=== PATIENT | female | born 1965 | race Caucasian/White ===

== ENCOUNTER 2016-08-25 08:45 | Outpatient (CLI) | payer OTHER | END 2016-08-25 08:46 | disposition home or self-care (01) | DX: R91.1 Solitary pulmonary nodule (principal) ==

== ENCOUNTER 2016-08-30 11:06 | Outpatient (CLI) | payer OTHER | END 2016-08-30 11:07 | disposition home or self-care (01) | DX: Z12.31 Encounter for screening mammogram for malignant neoplasm of breast (principal) ==

== ENCOUNTER 2020-12-21 08:00 | Outpatient (CLI) | payer MEDICAID, OTHER ==
[2020-12-21 12:16] LABS: BASOPHILS % (AUTO) 0.6 %; EOSINOPHILS # (AUTO) 0.1 10^3/uL (0.0-0.7); EOSINOPHILS % (AUTO) 1.7 %; HCT - HEMATOCRIT 38.9 % (37.0-47.0); HGB - HEMOGLOBIN 12.9 g/dL (12.0-16.0); LYMPHOCYTES # (AUTO) 2.4 10^3/uL (1.5-3.5); LYMPHOCYTES % (AUTO) 36.7 %; MEAN CORPUSCULAR HEMOGLOBIN 32.7 pg (27.0-31.0); MEAN CORPUSCULAR HGB CONC 33.2 g/dL (32.0-36.0); MEAN CORPUSCULAR VOLUME 98.5 fL (81.0-99.0); MEAN PLATELET VOLUME 10.5 fL (7.9-10.8); MONOCYTES # (AUTO) 0.4 10^3/uL (0.0-1.0); MONOCYTES % (AUTO) 6.8 %; NEUTROPHILS # (AUTO) 3.5 10^3/uL (1.5-6.6); PLT - PLATELET COUNT 217 10^3/uL (130-450); RED BLOOD COUNT 3.95 10^6/uL (4.20-5.40); RED CELL DISTRIBUTION WIDTH 12.2 % (12.0-15.0); WHITE BLOOD COUNT 6.5 x10^3/uL (4.8-10.8)
[2020-12-21 12:39] LABS: ALBUMIN 4.4 g/dL (3.2-5.5); ALBUMIN/GLOBULIN RATIO 1.6 (1.0-2.2); ALKALINE PHOSPHATASE 64 IU/L (42-121); ALT ALANINE AMINOTRANSFERASE 16 IU/L (10-60); AST ASPARTATE AMINOTRANSFERASE 17 IU/L (10-42); BILIRUBIN,TOTAL 0.7 mg/dL (0.2-1.0); BUN - BLOOD UREA NITROGEN 12 mg/dL (6-20); CALCIUM 9.3 mg/dL (8.5-10.3); CARBON DIOXIDE - CO2 25 mmol/L (21-32); CHLORIDE 103 mmol/L (101-111); CHOL/HDL RATIO 3.6 (<4.4); CHOLESTEROL 186 mg/dL; CREATININE 0.6 mg/dL (0.4-1.0); GFR - MDRD 104 (>89); GLUCOSE 98 mg/dL (70-100); HDL CHOLESTEROL 52 mg/dL; LDL CHOLESTEROL,CALCULATED 120 mg/dL; LDL/HDL RATIO 2.3 (<4.4); POTASSIUM 4.2 mmol/L (3.5-5.0); SODIUM 139 mmol/L (135-145); TOTAL PROTEIN 7.2 g/dL (6.7-8.2); TRIGLYCERIDES 70 mg/dL; VLDL CHOLESTEROL 14 mg/dL
[2020-12-21 12:40] LABS: THYROID STIMULATING HORMONE 2.22 uIU/mL (0.34-5.60)
== END 2020-12-21 23:59 | disposition home or self-care (01) ==
LOC: LAB.WCP 08:00
PROVIDERS: ATTEND Family Medicine
DX: Z00.00 Encounter for general adult medical examination without abnormal findings (principal)
CPT/HCPCS: 36415; 80053; 80061; 83721; 84443; 85025

== ENCOUNTER 2020-12-30 09:25 | Outpatient (CLI) | payer MEDICAID ==
--- NOTE | 2020-12-30 18:55 | CT Report ---
PROCEDURE: CHEST WO INDICATIONS: PULMONARY NODULE TECHNIQUE: Noncontrast 5 mm thick sections acquired from the pulmonary apices to the posterior costophrenic angl es. 7 mm thick coronal and sagittal MIP reformats were then acquired. For radiation dose reduction, the following was used: automated exposure control, adjustment of mA and/or kV according to patient size. COMPARISON: Similar CT 08/25/2016. FINDINGS: Image quality: Excellent. Lungs and pleura: No acute air space opacities. A small angular radiodensity at the medial right up per lobe near the spinal pleural surface is unchanged in size and morphology given differences in na hnique. This is best seen currently on CT series 4 image [address] series 4 image 40. N o new nodule has developed. No pleural effusions or pneumothorax. Central and peripheral airways are patent and normal in caliber. Mediastinum: Heart size is normal. No pericardial effusion. No mediastinal adenopathy by size crit eria. Thoracic aorta and central pulmonary arteries are normal in size. Esophagus is normal in elijah michelle. No hiatal hernia. Bones and chest wall: No suspicious bony lesions. No vertebral body compression fractures. No axil gayle or supraclavicular adenopathy by size criteria. The thyroid is normal in size and there are no incidental findings. Abdomen: Visualized upper abdominal solid organs and bowel loops appear normal in the absence of con trast. IMPRESSION: Stable appearing benign nodule within the medial right upper lobe near the spinal pleural surface, wi th reference to the prior CT 08/25/2016. No follow-up recommended. CLINICAL RECOMMENDATION STATEMENTS: In patients <35 years with an ITN detected on CT, MRI, or extrathyroidal ultrasound, the Committee re commends further evaluation with dedicated thyroid ultrasound if the nodule is ?1 cm and has no suspi cious imaging features, and if the patient has normal life expectancy. In patients ?35 years with an ITN detected on CT, MRI, or extrathyroidal ultrasound, the Committee re commends further evaluation with dedicated thyroid ultrasound if the nodule is ?1.5 cm and has no jeb picious imaging features, and if the patient has normal life expectancy. (ACR, 2014) Reviewed by: Joe Meehan MD on 12/30/2020 5:53 PM [facility] Approved by: Joe Meehan MD on 12/30/2020 5:53 PM [facility] Station ID: [id number]
== END 2020-12-30 09:26 | disposition home or self-care (01) ==
LOC: DI 09:25
PROVIDERS: ATTEND Family Medicine
DX: R91.1 Solitary pulmonary nodule (principal)

== ENCOUNTER 2021-04-05 09:26 | Day surgery (SDC) | payer MEDICAID ==
[2021-04-05] MEDS ORDERED: LACTATED RINGERS 1,000 ML IV ONE (09:30)
[2021-04-05] MEDS ORDERED: MIDAZOLAM 2 MG/2 ML VIAL ONE ×2 (10:42)
[2021-04-05] MEDS ORDERED: fentaNYL 250 MCG/5 ML VIAL ONE (10:42)
[2021-04-05] MEDS ORDERED: LACTATED RINGERS 300 ML IV ONE (11:22)
[2021-04-05 11:57] VITALS: BP 97/70
== END 2021-04-05 09:27 | disposition home or self-care (01) ==
LOC: SDS 09:26
PROVIDERS: ATTEND Surgery
PROC: 0DBN8ZZ Excision of Sigmoid Colon, Via Natural or Artificial Opening Endoscopic (ICD-10-PCS; 2021-04-05)
PROC: 0DBP8ZZ Excision of Rectum, Via Natural or Artificial Opening Endoscopic (ICD-10-PCS; principal; 2021-04-05 10:45)
DX: Z12.11 Encounter for screening for malignant neoplasm of colon (principal); D12.5 Benign neoplasm of sigmoid colon; D12.8 Benign neoplasm of rectum; Z80.0 Family history of malignant neoplasm of digestive organs; F41.9 Anxiety disorder, unspecified
CPT/HCPCS: 45385; J3010; J7120

== ENCOUNTER 2022-08-08 16:39 | Emergency (ER) | payer MEDICAID ==
--- NOTE | 2022-08-08 17:45 | XRAY Report ---
PROCEDURE: Ankle 3 View RT INDICATIONS: Trauma TECHNIQUE: 3 views of the ankle were acquired. COMPARISON: Same day right foot radiographs. FINDINGS: Bones: Distal fifth metatarsal fracture. No ankle fracture. No dislocation. Ankle mortise is normall y aligned. No suspicious bony lesions. Small plantar calcaneal spur. Soft tissues: No tibiotalar joint effusion. Achilles tendon appears normal. IMPRESSION: Distal fifth metatarsal fracture. No ankle fracture. Reviewed by: Tha Schuler MD on 08/08/2022 5:43 PM [facility] Approved by: Tha Schuler MD on 08/08/2022 5:43 PM [facility] Station ID: [id number]
--- NOTE | 2022-08-08 17:45 | XRAY Report ---
PROCEDURE: Foot 3 View RT INDICATIONS: Trauma TECHNIQUE: 3 views of the foot were acquired. COMPARISON: Same day right ankle radiographs. FINDINGS: Bones: Distal fifth metatarsal shaft fracture. No intra-articular extension. Minimal displacement. No dislocation. No suspicious bony lesions. Small plantar calcaneal spur. Soft tissues: No tibiotalar joint effusion. Achilles tendon appears normal. IMPRESSION: Distal 5th metatarsal shaft fracture. Reviewed by: Tha Schuler MD on 08/08/2022 5:44 PM [facility] Approved by: Tha Schuler MD on 08/08/2022 5:44 PM [facility] Station ID: [id number]
--- NOTE | 2022-08-08 20:28 | ED Physician Documentation ---
History of Present Illness - Stated complaint Stated Complaint: RT FT BRUISED/PX - Chief complaint Chief Complaint: Trauma Ext - History obtained from History obtained from: Patient - Additonal information Additional information: 56-year-old female presents to the emergency department for evaluation of acute right foot pain sustained when she stepped awkwardly off her front stair this afternoon. Did not strike her head. She has had some swelling and ecchymosis to the distal foot. No history of previous injury. Reliable historian Review of Systems Musculoskeletal: reports: Extremity pain PD PAST MEDICAL HISTORY - Past Medical History Cardiovascular: None Respiratory: Asthma Endocrine/Autoimmune: None GI: GI bleed, Ulcers : None HEENT: None Psych: None Musculoskeletal: None Derm: None - Past Surgical History General: Colonoscopy - Present Medications Home Medications: Ambulatory Orders Medication Instructions Recorded Confirmed oxyCODONE [Roxicodone] 5 mg PO BID PRN #10 tablet 08/08/22 - Allergies Allergies/Adverse Reactions: Allergies Allergy/AdvReac Type Severity Reaction Status Date / Time No Known Drug Allergies Allergy Verified 08/08/22 16:47 PD ED PE EXPANDED - Extremities Extremities: Right foot (Swelling and ecchymosis of the distal right foot with tenderness over the distal fifth metacarpal. Full range of motion of the ankle and foot in all planes otherwise. 2+ DP pulse. Neurovascular intact) Results - Vitals Vitals: Vital Signs - 24 hr 08/08/22 16:48 Temperature 36.7 C Heart Rate 83 Respiratory 16 Rate Blood Pressure 113/59 L O2 Saturation 98 Oxygen O2 Source Room air - Rads (name of study) Right foot Radiology: Final report received (Mildly displaced right fifth distal metatarsal fracture) PD Medical Decision Making - ED course Complexity details: reviewed results, considered differential, d/w patient ED course: 56-year-old female presents emergency department for evaluation of acute right foot pain and ecchymosis and swelling after stepping awkwardly off her porch. X-ray confirms a distal fifth meta tarsal fracture. She was placed in a posterior splint given crutches. Neurovascularly intact post splinting. Advised ice Motrin and Tylenol for analgesia limited prescription for oxycodone also sent to the pharmacy. Advised need to follow-up with orthopedics. Routine splint care and emergent return precautions otherwise discussed. Departure - Departure Disposition: Home, Self Care Clinical Impression: Metatarsal stress fracture of right foot Qualifiers: Encounter type: initial encounter Qualified Code(s): M84.374A - Stress fracture, right foot, initial encounter for fracture Condition: Stable Record reviewed to determine appropriate education?: Yes Instructions: ED Fx Foot Follow-Up: Torres Walls MD [Provider Admit Priv/Credential] - Prescriptions: oxyCODONE [Roxicodone] 5 mg PO BID PRN #10 tablet PRN Reason: Pain Comments: Navya you have fractured the distal portion of your fifth metatarsal bone. We have placed you in a temporary fiberglass splint. In the long-term you will need to follow-up with orthopedics. I have given you the name of a local orthopedic surgeon. Your primary care doctor may need to make the referral. You should be nonweightbearing on this foot until you are seen and cleared by orthopedics. If you find the splint is too tight or gets wet you should return to the ER to have it replaced. You can take Tylenol and ibuprofen deqt-vih-jxfzdmv for discomfort. For more severe pain I prescribed oxycodone. I am prescribing a short course of narcotic pain medication for you. These are potentially dangerous and addictive medications that should be used carefully. These medications may constipate you. Take an zlwz-akq-azhpggt stool softener (docusate) twice daily with plenty of water while taking these medications. If you go 24 hours without a bowel movement, take jkye-cxn-lmiuykb miralax, per package instructions. Do not drink or drive while taking these medications. If you received narcotic or sedating medications while in the emergency department, do not drive for 24 hours. Store this medication in a safe, secure place and out of reach of children. It is a violation of federal law to give or sell this medication to another person or to use in a manner other than prescribed. The ED will not refill narcotic prescriptions, including prescriptions lost or stolen. To dispose of unwanted medications: 1. [facility] [address] [facility] [place] has a medication drop box. They accept prescription medications (in pill form) Sunday through Sunday 9:00 a.m. to 5:00 p.m. 2. The [facility] [employer] accepts prescription medications (in pill form only) for disposal year round. Call for more information. 3. Contact the [facility] for the next [facility] sponsored prescription drug collection event. , [phone], or [phone]; Note that many narcotic pain relievers also contain Tylenol/acetaminophen. Please ensure that your total dose of acetaminophen from all sources does not exceed 3 g (3000 mg) per day.
[2022-08-08 21:03] VITALS: BP 116/60
== END 2022-08-08 21:02 | disposition home or self-care (01) ==
LOC: ED 16:39
DX: M84.374A Stress fracture, right foot, initial encounter for fracture (principal)
CPT/HCPCS: 99283

== ENCOUNTER 2022-08-15 14:04 | Outpatient (CLI) | payer MEDICAID ==
--- NOTE | 2022-08-15 17:42 | XRAY Report ---
PROCEDURE: Foot 3 View RT INDICATIONS: RIGHT FOOT FRACTURE TECHNIQUE: 3 views of the foot were acquired. COMPARISON: Right foot radiographs 08/08/2022. FINDINGS: Bones: Fracture at the distal fifth metatarsal is unchanged. No dislocations. No suspicious bony le sions. Small plantar calcaneal spur. Soft tissues: No tibiotalar joint effusion. Achilles tendon appears normal. IMPRESSION: Stable distal fifth metatarsal fracture. Reviewed by: Tha Schuler MD on 08/15/2022 5:41 PM PST Approved by: Tha Schuler MD on 08/15/2022 5:41 PM PST Station ID: [id number]
== END 2022-08-15 14:05 | disposition home or self-care (01) ==
LOC: DI.WOS 14:04
PROVIDERS: ATTEND Orthopaedic Surgery
DX: S92.351D Displaced fracture of fifth metatarsal bone, right foot, subsequent encounter for fracture with routine healing (principal)

== ENCOUNTER 2022-09-07 14:22 | Outpatient (CLI) | payer MEDICAID ==
[2022-09-07 14:31] LABS: BASOPHILS % (AUTO) 0.6 %; EOSINOPHILS # (AUTO) 0.2 10^3/uL (0.0-0.7); EOSINOPHILS % (AUTO) 3.3 %; HCT - HEMATOCRIT 37.9 % (37.0-47.0); HGB - HEMOGLOBIN 12.7 g/dL (12.0-16.0); LYMPHOCYTES # (AUTO) 2.8 10^3/uL (1.5-3.5); LYMPHOCYTES % (AUTO) 43.6 %; MEAN CORPUSCULAR HEMOGLOBIN 32.5 pg (27.0-31.0); MEAN CORPUSCULAR HGB CONC 33.5 g/dL (32.0-36.0); MEAN CORPUSCULAR VOLUME 96.9 fL (81.0-99.0); MEAN PLATELET VOLUME 9.5 fL (7.9-10.8); MONOCYTES # (AUTO) 0.4 10^3/uL (0.0-1.0); MONOCYTES % (AUTO) 6.8 %; NEUTROPHILS # (AUTO) 2.9 10^3/uL (1.5-6.6); NEUTROPHILS % (AUTO) 45.5 %; PLT - PLATELET COUNT 184 10^3/uL (130-450); RED BLOOD COUNT 3.91 10^6/uL (4.20-5.40); RED CELL DISTRIBUTION WIDTH 12.1 % (12.0-15.0); WHITE BLOOD COUNT 6.3 x10^3/uL (4.8-10.8)
[2022-09-07 15:10] LABS: ALBUMIN 4.2 g/dL (3.2-5.5); ALBUMIN/GLOBULIN RATIO 1.5 (1.0-2.2); ALKALINE PHOSPHATASE 74 IU/L (42-121); ALT ALANINE AMINOTRANSFERASE 18 IU/L (10-60); AST ASPARTATE AMINOTRANSFERASE 20 IU/L (10-42); BILIRUBIN,TOTAL 0.9 mg/dL (0.2-1.0); BUN - BLOOD UREA NITROGEN 7 mg/dL (6-20); CALCIUM 9.5 mg/dL (8.5-10.3); CARBON DIOXIDE - CO2 23 mmol/L (21-32); CHLORIDE 101 mmol/L (101-111); CHOL/HDL RATIO 3.6 (<4.4); CHOLESTEROL 207 mg/dL; CREATININE 0.6 mg/dL (0.4-1.0); GFR - MDRD 103 (>89); GLUCOSE 105 mg/dL (70-100); HDL CHOLESTEROL 58 mg/dL; LDL CHOLESTEROL,CALCULATED 137 mg/dL; LDL/HDL RATIO 2.4 (<4.4); POTASSIUM 3.6 mmol/L (3.5-5.0); SODIUM 137 mmol/L (135-145); TRIGLYCERIDES 62 mg/dL; VLDL CHOLESTEROL 12 mg/dL
[2022-09-07 15:16] LABS: THYROID STIMULATING HORMONE 2.92 uIU/mL (0.34-5.60)
--- NOTE | 2022-09-07 19:48 | DEXA Report ---
PROCEDURE: Dexa Spine and/or Hip INDICATIONS: FOOT FX TECHNIQUE: Dual energy x-ray absorptiometry (DXA) was performed on a TopiVert System. Regions measur ed are the AP Spine, femoral neck, and if needed forearm. COMPARISON: None. FINDINGS: Lumbar Spine: Bone Mineral Density 1.016 g/cm/cm,T score -1.4, osteopenia Left Femoral Neck: Bone Mineral Density 0.760 g/cm/cm, T score -2.0, osteopenia Left Hip: Bone Mineral Density 0.824 g/cm/cm,T score -1.5, osteopenia (T score greater or equal to -1.0: NORMAL) (T score from -1.1 to -2.4: OSTEOPENIA) (T score less than or equal to -2.5 to: OSTEOPOROSIS) Impression: Osteopenia. Patient is at increased risk for fracture Patients with diagnosis of osteoporosis or osteopenia should have regular bone mineral density assess ment. For those eligible for Medicare, routine testing is allowed once every 2 years. Testing frequ ency can be increased for patients who have rapidly progressing disease or for those who are receivin g medical therapy to restore bone mass. Reviewed by: Randall Torres MD on 09/07/2022 7:47 PM PST Approved by: Randall Torres MD on 09/07/2022 7:47 PM PST Station ID: [id number]
--- NOTE | 2022-09-08 10:28 | CT Report ---
PROCEDURE: Low Dose Lung Cancer Screen INDICATIONS: HIST OF TOBACCO USE TECHNIQUE: Noncontrast low-dose axial images were acquired from the pulmonary apices to the posterior costophren ic angles. Multiplanar MIP reformats were then reconstructed. For radiation dose reduction, the follo wing was used: automated exposure control, adjustment of mA and/or kV according to patient size. COMPARISON: CT chest without, 12/30/2020.. FINDINGS: Image quality: Excellent. Lungs and pleura: There are multiple subcentimeter nodules, not significantly changed. Reference nod ules are listed in following: Nodule 1: 3 mm; right major fissure; series 4 image 143. Nodule 2: 4 mm right minor fissure; series 4 image 145. Nodule 3: 3 mm; right middle lobe; series 4 image 195. Nodule 4: 3 mm; lingula; series 4 image 150; calcified. No pulmonary infiltrate or consolidation. No pleural effusions. Mediastinum: Heart size is normal. No pericardial effusion. No mediastinal adenopathy by size crit eria. Thoracic aorta and central pulmonary arteries are normal in size. Esophagus is normal in elijah michelle. Small hiatal hernia. There is concentric thickening at the distal esophagus. Bones and chest wall: No suspicious bony lesions. No vertebral body compression fractures. No axil gayle or supraclavicular adenopathy by size criteria. The thyroid is normal in size and there are no incidental findings. Abdomen: Visualized upper abdomen solid organs and bowel loops appear normal in the absence of contr ast. IMPRESSION: 1. No suspicious lung nodules. ACR lung RADS category 2. Recommend annual screening lung CT in 12 mon ths. 2. Small hiatal hernia. There is concentric thickening of the distal esophagus. Recommend esophagram or EGD for follow-up. Reviewed by: Amy Mahoney MD on 09/08/2022 10:26 AM [facility] Approved by: Amy Mahoney MD on 09/08/2022 10:26 AM PST Station ID: [id number]
== END 2022-09-07 14:23 | disposition home or self-care (01) ==
LOC: DI 14:22
PROVIDERS: ATTEND Physician Assistant
DX: Z12.2 Encounter for screening for malignant neoplasm of respiratory organs (principal); K44.9 Diaphragmatic hernia without obstruction or gangrene; M85.89 Other specified disorders of bone density and structure, multiple sites; E87.6 Hypokalemia; Z13.29 Encounter for screening for other suspected endocrine disorder; Z13.9 Encounter for screening, unspecified; Z87.891 Personal history of nicotine dependence
CPT/HCPCS: 36415; 80053; 80061; 83721; 84443; 85025

== ENCOUNTER 2022-09-21 16:03 | Outpatient (CLI) | payer MEDICAID ==
--- NOTE | 2022-09-21 12:17 | XRAY Report ---
PROCEDURE: Foot 3 View RT INDICATIONS: RIGHT 5TH MT FRACTURE TECHNIQUE: 3 views of the foot were acquired. COMPARISON: 08/22/2022, 08/15/2022, 08/08/2022 FINDINGS: Bones: Again noted is comminuted fracture involving distal shaft/neck of fifth metatarsal bone with o verall unchanged alignment. There is partial bony union at fifth metatarsal shaft fracture site. No n ew fracture or dislocation is seen. No suspicious bony lesions. Soft tissues: No tibiotalar joint effusion. Achilles tendon appears normal. IMPRESSION: Interval healing at patient's known fifth metatarsal shaft/neck fracture site with stable right foot alignment. No new fracture or dislocation. Reviewed by: Richard Kitchen MD on 09/21/2022 12:16 PM PST Approved by: Richard Kitchen MD on 09/21/2022 12:16 PM PST Station ID: [id number]
== END 2022-09-21 16:05 | disposition home or self-care (01) ==
LOC: DI.WOS 16:03
PROVIDERS: ATTEND Orthopaedic Surgery
DX: S92.351D Displaced fracture of fifth metatarsal bone, right foot, subsequent encounter for fracture with routine healing (principal)

== ENCOUNTER 2022-10-23 08:00 | Outpatient (CLI) | payer MEDICAID ==
--- NOTE | 2022-10-23 16:18 | XRAY Report ---
PROCEDURE: Foot 3 View RT INDICATIONS: RIGHT 5TH mT FRACTURE TECHNIQUE: 3 views of the foot were acquired. COMPARISON: 09/21/2022 plain films FINDINGS: Bones: No change in alignment of distal fifth metatarsal fracture. No suspicious bony lesions. Soft tissues: No tibiotalar joint effusion. Achilles tendon appears normal. IMPRESSION: No change in fifth metatarsal fracture. Reviewed by: Ron Guillermo MD on 10/23/2022 4:17 PM PDT Approved by: Ron Guillermo MD on 10/23/2022 4:17 PM PDT Station ID: [id number]
== END 2022-10-23 23:59 | disposition home or self-care (01) ==
LOC: DI.WOS 08:00
PROVIDERS: ATTEND Orthopaedic Surgery
DX: S92.351D Displaced fracture of fifth metatarsal bone, right foot, subsequent encounter for fracture with routine healing (principal)

== ENCOUNTER 2022-10-26 08:57 | Day surgery (SDC) | payer MEDICAID ==
[2022-10-26] MEDS ORDERED: LACTATED RINGERS 1,000 ML IV ONE (08:59)
[2022-10-26] MEDS ORDERED: PROPOFOL 200 MG/20 ML VIAL IVP ONE (09:52)
[2022-10-26] MEDS ORDERED: MIDAZOLAM 2 MG/2 ML VIAL ONE (09:53)
[2022-10-26] MEDS ORDERED: GLYCOPYRROLATE 1 MG/5 ML VIAL ONE (09:56)
--- NOTE | 2022-10-26 10:12 | ANESTHESIA ---
Pre-Anesthesia VS, & Labs - Diagnosis thickened esophagus on CT - Procedure EGD with biopsy Vital Signs: Temp Pulse Resp BP Pulse Ox O2 Flow Rate 36.1 C L 80 16 118/72 96 10/26/22 09:02 10/26/22 09:02 10/26/22 09:02 10/26/22 09:02 10/26/22 09:02 Height: 5 ft 6 in Weight (kg): 68 kg Body Mass Index: 24.2 BMI Classification: Normal - NPO >8 hours - Is Patient ?: No Home Medications and Allergies Allergies/Adverse Reactions: Allergies Allergy/AdvReac Type Severity Reaction Status Date / Time No Known Drug Allergies Allergy Verified 10/25/22 12:48 Anes History & Medical History - Anesthetic History Anesthesia Complications: reports: No previous complications - Medical History Cardiovascular: reports: None Pulmonary: reports: Asthma Gastrointestinal: reports: GI bleed, Ulcers Urinary: reports: None Neuro: reports: None Musculoskeletal: reports: None Endocrine/Autoimmune: reports: None Skin: reports: None Smoking Status: Former smoker (quit 2009) Psychosocial: reports: No issues indicated - Surgical History General: reports: Colonoscopy, EGD Exam General: Alert, Oriented x3, Cooperative, No acute distress Dental: WNL, Dentures full Upper Mouth Openin Fingerbreadth Neck Mobility: Normal Mallampati classification: II Thyromental Distance: 4-6 cm Mental/Cognitive Status: Alert/Oriented X3, Normal for patient Plan Anesthesia Type: General, Total IV Consent for Procedure(s) Verified and Reviewed: Yes Code Status: Attempt Resuscitation ASA classification: 2-Mild systemic disease Is this case an emergency?: No
[2022-10-26] MEDS ORDERED: LACTATED RINGERS 600 ML IV ONE (10:45)
[2022-10-26 10:57] VITALS: BP 99/56
--- NOTE | 2022-10-26 15:40 | ANESTHESIA POST OP EVALUATION ---
Anesthesia Post Eval - Post Anesthesia Eval Vitals: Last Vital Signs Temp 36.2 C L 10/26/22 10:57 Pulse 72 10/26/22 10:57 Resp 16 10/26/22 10:57 BP 99/56 L 10/26/22 10:57 Pulse Ox 97 10/26/22 10:57 O2 Flow Rate CV Function Including HR & BP: Stable Pain Control: Satisfactory Nausea & Vomiting: Negative Mental Status: Baseline Respiratory Status: Airway Patent Hydration Status: Satisfactory Anesthesia Complications: None
== END 2022-10-26 08:58 | disposition home or self-care (01) ==
LOC: SDS 08:57
PROVIDERS: ATTEND Surgery
DX: K21.9 Gastro-esophageal reflux disease without esophagitis (principal); K44.9 Diaphragmatic hernia without obstruction or gangrene; R93.3 Abnormal findings on diagnostic imaging of other parts of digestive tract; R10.13 Epigastric pain; J45.909 Unspecified asthma, uncomplicated; Z87.891 Personal history of nicotine dependence
CPT/HCPCS: 43235; J7120

== ENCOUNTER 2023-09-28 17:36 | Outpatient (CLI) | payer OTHER ==
--- NOTE | 2023-09-28 23:42 | CT Report ---
PROCEDURE: Lung Cancer Screen INDICATIONS: HIST OF TOBACCO USE TECHNIQUE: A CT scan of the chest was performed. Intravenous contrast media was not administered. Images were re corded and evaluated at appropriate window settings. Reformats: axial MIP of the chest, coronal and s agittal. For radiation dose reduction, the following was used: automated exposure control, adjustment of mA and/or kV according to patient size. COMPARISON: 09/07/2022 CT chest. FINDINGS: Image quality: Excellent. Lungs and pleura: No pleural effusions. No pneumothorax. Stable 3 mm nodule along the right major fi ssure (4/43). Stable 4 mm nodule in the right minor fissure (4/145). Stable calcified granuloma withi n the lingula. Stable 2 mm subpleural nodule within the right middle lobe (4/62). Additional scattere d micronodules are noted and grossly stable compared to prior. Mediastinum: Heart size is normal. No pericardial effusion. No large vessel abnormality. No mediastin al adenopathy by size criteria. Small hiatal hernia. Chest wall and lower neck: Thyroid is unremarkable. No axillary or supraclavicular adenopathy by size . Bones: No aggressive osseous abnormality. Degenerative changes of the spine. Upper Abdomen: Unremarkable. IMPRESSION: Stable pulmonary nodules as above. No new or enlarging pulmonary nodules are seen. Lung RAD: 2 - Benign. Recommendation: Continue annual screening in 12 Months with LDCT Reviewed by: Jose Butler MD on 09/28/2023 11:41 PM PST Approved by: Jose Butler MD on 09/28/2023 11:41 PM PST Station ID: [id number]
== END 2023-09-28 17:37 | disposition home or self-care (01) ==
LOC: DI 17:36
PROVIDERS: ATTEND Physician Assistant
DX: Z12.2 Encounter for screening for malignant neoplasm of respiratory organs (principal); Z87.891 Personal history of nicotine dependence; R91.8 Other nonspecific abnormal finding of lung field